=== PATIENT | male | born 1975 | race Caucasian/White ===

== ENCOUNTER 2020-05-18 05:31 | Emergency (ER) | payer OTHER ==
[2020-05-18] MEDS ORDERED: LORazepam 1 MG Tab PO ONE (06:11)
--- NOTE | 2020-05-18 06:12 | EDM.PDOC ---
ED HPI GENERAL MEDICAL PROBLEM - General Chief Complaint: General Stated Complaint: RAPID HEART RATE Time Seen by Provider: 05/18/20 06:05 Source of Information: Reports: Patient, RN Notes Reviewed History Limitations: Reports: No Limitations - History of Present Illness INITIAL COMMENTS - FREE TEXT/NARRATIVE: 45-year-old gentleman presents emergency department with a complaint of palpitations he states it woke him from sleep he has never had this before he is currently under a lot of stress he has had some chest pain with shortness of breath no nausea vomiting no diaphoresis no history of cardiac disease Anterior Chest Pain Score (Numeric/FACES): 7 - Related Data Allergies Allergy/AdvReac Type Severity Reaction Status Date / Time erythromycin base Allergy Cannot Verified 05/18/20 05:46 Remember Home Meds: Home Meds NK [No Known Home Meds] 03/02/15 [History] Past Medical History HEENT History: Reports: Impaired Vision Neurological History: Reports: Concussion - Infectious Disease History Infectious Disease History: Reports: Chicken Pox - Past Surgical History Other HEENT Surgeries/Procedures: wisdome teeth removal Other Musculoskeletal Surgeries/Procedures:: surgery on ankle. Social & Family History - Tobacco Use Tobacco Use Status *Q: Never Tobacco User Second Hand Smoke Exposure: No - Caffeine Use Caffeine Use: Reports: None - Recreational Drug Use Recreational Drug Use: No ED ROS GENERAL - Review of Systems Review Of Systems: See Below Constitutional: Reports: No Symptoms HEENT: Reports: No Symptoms Respiratory: Reports: Shortness of Breath Cardiovascular: Reports: Chest Pain, Palpitations GI/Abdominal: Reports: No Symptoms ED EXAM, GENERAL - Physical Exam Exam: See Below Exam Limited By: No Limitations General Appearance: Alert, WD/WN, No Apparent Distress Respiratory/Chest: No Respiratory Distress, Lungs Clear, Normal Breath Sounds, No Accessory Muscle Use, Chest Non-Tender Cardiovascular: Regular Rate, Rhythm, No Murmur GI/Abdominal: Soft, Non-Tender Extremities: No Pedal Edema Course - Vital Signs Last Recorded V/S: Last Vital Signs Temp 96.8 F L 05/18/20 06:39 Pulse 69 05/18/20 06:39 Resp 16 05/18/20 06:39 BP 155/91 H 05/18/20 06:39 Pulse Ox 97 05/18/20 06:39 - Orders/Labs/Meds Orders: Active Orders 24 hr Category Date Time Status Cardiac Monitoring [RC] .As Directed Care 05/18/20 06:09 Active EKG Documentation Completion [RC] ASDIRECTED Care 05/18/20 06:10 Active Chest 2V [CR] Stat Exams 05/18/20 06:10 Taken EKG 12 Lead [EK] Stat Ther 05/18/20 06:10 Ordered Labs: Laboratory Tests 05/18/20 05/18/20 05/18/20 Range/Units 06:23 06:23 06:23 WBC 5.6 (4.5-11.0) K/uL RBC 4.95 (4.30-5.90) M/uL Hgb 14.7 (12.0-15.0) g/dL Hct 45.0 (40.0-54.0) % MCV 91 (80-98) fL MCH 30 (27-31) pg MCHC 33 (32-36) % Plt Count 224 (150-400) K/uL Neut % (Auto) 57 (36-66) % Lymph % (Auto) 26 (24-44) % [place] % (Auto) 14 H (2-6) % Eos % (Auto) 2 (2-4) % Baso % (Auto) 1 (0-1) % Sodium 143 (140-148) mmol/L Potassium 3.4 L (3.6-5.2) mmol/L Chloride 106 (100-108) mmol/L Carbon Dioxide 26 (21-32) mmol/L Anion Gap 14.4 H (5.0-14.0) mmol/L BUN 16 (7-18) mg/dL Creatinine 1.2 (0.8-1.3) mg/dL Est Cr Clr Drug Dosing 79.37 mL/min Estimated GFR (MDRD) > 60 (>60) Glucose 126 H (74-106) mg/dL Lactic Acid 1.0 (0.4-2.0) mmol/L Calcium 8.6 (8.5-10.1) mg/dL Total Bilirubin 0.3 (0.2-1.0) mg/dL AST 18 (15-37) U/L ALT 44 (12-78) U/L Alkaline Phosphatase 67 (46-116) U/L Troponin I < 0.017 (0.000-0.056) ng/mL Total Protein 6.7 (6.4-8.2) g/dL Albumin 3.8 (3.4-5.0) g/dL Globulin 2.9 (2.3-3.5) g/dL Albumin/Globulin Ratio 1.3 (1.2-2.2) Meds: Medications Discontinued Medications Generic Name Dose Route Start Last Admin Trade Name Silvia PRN Reason Stop Dose Admin Lorazepam 1 mg 05/18/20 06:11 05/18/20 06:14 Ativan PO 05/18/20 06:12 1 mg ONETIME ONE Administration Departure - Departure Time of Disposition: 07:05 Disposition: Home, Self-Care 01 Condition: Fair Clinical Impression: Palpitations - Discharge Information Instructions: Palpitations, [id number] Referrals: PCP,None [Primary Care Provider] - Forms: ED Department Discharge Additional Instructions: Please follow-up with primary care provider for further evaluation, call or return to the emergency department worsening of symptoms Sepsis Event Note (ED) - Evaluation Sepsis Screening Result: No Definite Risk - Focused Exam Vital Signs: Vital Signs Temp Pulse Resp BP Pulse Ox 05/18/20 06:39 96.8 F L 69 16 155/91 H 97 05/18/20 05:53 96.7 F L 76 15 178/96 H 98 - My Orders Last 24 Hours: My Active Orders 05/18/20 06:09 Cardiac Monitoring [RC] .As Directed 05/18/20 06:10 EKG Documentation Completion [RC] ASDIRECTED Chest 2V [CR] Stat EKG 12 Lead [EK] Stat - Assessment/Plan Last 24 Hours: My Active Orders 05/18/20 06:09 Cardiac Monitoring [RC] .As Directed 05/18/20 06:10 EKG Documentation Completion [RC] ASDIRECTED Chest 2V [CR] Stat EKG 12 Lead [EK] Stat Plan: Assessment Acuity = acute Site and laterality = palpitations Etiology = unknown Manifestations = none Location of injury = Home Lab values = CBC, CMP, troponin, EKG, chest x-ray all within normal limits Plan He received no help from the Ativan provided, he was disappointed that we were unable to find a cause for his palpitations while on the property assessment monitor in the emergency department had no variation in his sinus rhythm, asked him to follow- up with the primary care for further evaluation talk to him about a Holter monitor which she declined This note was dictated using [employer] voice recognition software please call with any questions on syntax or grammar.
[2020-05-18 07:16] VITALS: BP 143/89; PULSE 71
--- NOTE | 2020-05-19 09:54 | CR ---
CHEST: 2 view CLINICAL HISTORY:Chest pain COMPARISON:None FINDINGS: The heart size, pulmonary vascularity and hilar structures are normal. No infiltrate effusion or pneumothorax is seen. IMPRESSION: No acute cardiopulmonary process.
== END 2020-05-18 07:16 | disposition home or self-care (01) ==
LOC: JP.ED 05:31
DX: R00.2 Palpitations (principal); R07.89 Other chest pain; R06.02 Shortness of breath; Z88.1 Allergy status to other antibiotic agents
CPT/HCPCS: 36415; 71046; 71046-26; 80053; 83605; 84484; 85025; 93005; 93010; 99283; 99285-25; A9270-GY